=== PATIENT | female | born 1980 | race Two or more races ===

== ENCOUNTER 2018-01-02 01:36 | Emergency (ER) | payer SELFPAY ==
[~2018-01-02] VITALS: Ht 134.6 cm; Wt 63.5 kg
--- NOTE | 2018-01-02 01:52 | Emergency Room Report ---
History of Present Illness General Chief Complaint: Abdominal Pain Source: Patient, EMS Present Illness HPI Ms. Fajardo is 37 yo female with hx of pancreatitis who presents with recurrent epigastric pain. Severe 10/10 pain. She normally takes Morphine for the pain. No other medical hx. Pain is persistent. NO change with movement. No radiation. Allergies: Coded Allergies: No Known Allergies (Unverified , 01/02/18) Patient History Limited by: language barrier Past Medical History: see triage record Last Menstrual Period: Dec Reviewed Nursing Documentation: PMH: Agreed; PSxH: Agreed Review of Systems Constitutional: Denies: fever, malaise Cardiovascular: Denies: chest pain Gastrointestinal: Reports: abdominal pain All Other Systems: negative except mentioned in HPI Physical Exam Vital Signs Date Time Temp Pulse Resp B/P (MAP) Pulse Ox O2 Delivery O2 Flow Rate FiO2 01/02/18 01:33 97.6 61 18 104/65 100 Room Air 97.5 Sp02 EP Interpretation: reviewed, normal General Appearance: well appearing, alert, GCS 15, non-toxic, other - appears in pain Head: normocephalic, atraumatic Eyes: bilateral eye normal inspection ENT: hearing grossly normal, normal pharynx, no angioedema, normal voice Neck: full range of motion, supple, no meningismus, no bony tend, supple/symm/ no masses Respiratory: chest non-tender, lungs clear, normal breath sounds, no rhonchi, no respiratory distress, no retraction, no accessory muscle use, speaking full sentences Cardiovascular #1: regular rate, rhythm, no edema, no gallop, no JVD, no murmur , no rub Gastrointestinal: normal bowel sounds, non tender, soft, non-distended, no guarding, no rebound Genitourinary: normal inspection Musculoskeletal: back normal, gait/station normal, normal range of motion, non- tender Neurologic: alert, oriented x3, responsive, motor strength/tone normal, sensory intact, speech normal Psychiatric: judgement/insight normal, memory normal, mood/affect normal Skin: normal color, no rash, warm/dry, well hydrated Medical Decision Making Last Vital Signs Date Time Temp Pulse Resp B/P (MAP) Pulse Ox O2 Delivery O2 Flow Rate FiO2 01/02/18 01:33 97.6 61 18 104/65 100 Room Air 97.5 Nola Dow MD Jan 02, 2018 01:52
[2018-01-02 02:00] VITALS: BP 104/65
[2018-01-02] MEDS ORDERED: Morphine Sulfate 4mg/ml Inj (IV USE ONLY) IVP ONE ×2 (02:00→03:30)
[2018-01-02 02:43] LABS: ANION GAP 8 mmol/L (5-15); BLOOD UREA NITROGEN 13 mg/dL (7-18); CALCIUM 8.8 MG/DL (8.5-10.1); CARBON DIOXIDE 24 MMOL/L (21-32); CHLORIDE 104 MMOL/L (98-107); CREATININE 0.7 MG/DL (0.55-1.30); POTASSIUM 3.2 MMOL/L (3.5-5.1); SODIUM 136 MMOL/L (136-145)
[2018-01-02 02:50] LABS: BASOPHILS % (AUTO) 0.9 % (0.0-2.0); EOSINOPHILS % (AUTO) 1.5 % (0.0-3.0); HEMATOCRIT 35.6 % (37.0-47.0); HEMOGLOBIN 11.6 G/DL (12.0-16.0); LYMPHOCYTES % (AUTO) 24.9 % (20.0-45.0); MEAN CORPUSCULAR VOLUME 81 FL (80-99); MONOCYTES % (AUTO) 6.7 % (1.0-10.0); PLATELET COUNT 213 K/UL (150-450); RED BLOOD COUNT 4.38 M/UL (4.20-5.40); RED CELL DISTRIBUTION WIDTH 12.5 % (11.6-14.8); WHITE BLOOD COUNT 10.3 K/UL (4.8-10.8)
[2018-01-02 02:55] LABS: ALANINE AMINOTRANSFERASE 21 U/L (12-78); ALBUMIN 3.5 G/DL (3.4-5.0); ALBUMIN/GLOBULIN RATIO 0.9 (1.0-2.7); ALKALINE PHOSPHATASE 72 U/L (46-116); ASPARTATE AMINO TRANSFERASE 19 U/L (15-37); BILIRUBIN,TOTAL 0.4 MG/DL (0.2-1.0)
[2018-01-02] MEDS ORDERED: Isovue-300 100ml vial INJ PRN (03:45)
[2018-01-02] MEDS ORDERED: FAMOTIDINE20 MG ORAL (04:48)
[2018-01-02 04:50] VITALS: BP 104/65
--- NOTE | 2018-01-02 10:25 | Diagnostic Imaging Report ---
Clinical Indication: Abdominal pain, epigastric pain for approximately 2 hours Technique: No oral contrast utilized, per emergency room physician request IV administration nonionic contrast. Venous phase spiral acquisition obtained through the abdomen and pelvis. Multiplanar reconstructions were generated. Total dose length product 714.75 mGycm. CTDIvol(s) 13.45 mGy. Dose reduction achieved using automated exposure control Comparison: none Findings: The appendix is normal. No evidence of diverticulosis or diverticulitis. No small bowel distention. Distal esophagus, stomach, duodenum are unremarkable. No free or loculated intraperitoneal gas or fluid is evident. There is a moderate-sized fat-containing umbilical hernia. The gallbladder is surgically absent. The common bile duct and common hepatic duct as well as the central intrahepatic ducts are dilated, common bile duct measuring up to 16 mm in diameter. No definite downstream obstructive lesion demonstrated. The liver, pancreas, spleen, adrenals, kidneys are all unremarkable. No retroperitoneal or mesenteric mass or adenopathy. No pelvic mass or adenopathy. The endometrium is thickened, appears to contain fluid and debris. The included lung bases demonstrate posterior dependent atelectatic changes. The bones demonstrate minimal thoracolumbar degenerative spondylosis Impression: Surgically absent gallbladder. Dilated extrahepatic and central intrahepatic bile ducts, without definite downstream obstructive lesion. Probably related to postcholecystectomy state, but occult downstream obstructive process not completely excludable. Correlate with liver function tests, consider MRCP as clinically indicated No acute process otherwise Prominent fluid within the endometrium. Consider further evaluation with pelvic sonography if clinically indicated Moderate-sized fat-containing umbilical hernia Posterior dependent pulmonary atelectatic changes and degenerative spondylosis incidentally noted This agrees with the preliminary interpretation provided overnight by [facility] teleradiology service. The CT scanner at [facility] is accredited by the [employer] and the scans are performed using protocols designed to limit radiation exposure to as low as reasonably achievable to attain images of sufficient resolution adequate for diagnostic evaluation.
== END 2018-01-02 04:45 | disposition home or self-care (01) ==
LOC: EDBD 01:36 → EMR 02:09
DX: R10.13 Epigastric pain (principal); K42.9 Umbilical hernia without obstruction or gangrene; Z87.19 Personal history of other diseases of the digestive system
CPT/HCPCS: 36415; 74177; 80053; 83690; 85025; 96365; 96375; 99284; J2270; J2405; Q9967